=== PATIENT | female | born 1955 | race Caucasian/White ===

== ENCOUNTER 2016-09-16 09:54 | Emergency (ER) | payer MEDICARE, OTHER ==
[~2016-09-16] VITALS: Ht 167.6 cm; Wt 68.2 kg
[2016-09-16 10:14] VITALS: BP 201/122; PULSE 91; RESP 10; O2SAT 100
--- NOTE | 2016-09-16 10:27 | ED.REPORT ---
HPI-General Illness Date of Service Sep 16, 2016 ED Provider: Dario Junior Pt is a 60 year old female with a history of untreated HTN who presents to the ED wanting to go into detox for heroin and methamphetamine. She c/o associated leg swelling. She denies abdominal pain, SOB, cough, chest pain, and any other symptoms. The pt reports that she is at [facility] for [facility], and she is presenting to the ED to get a prescription for Suboxone to help with her detox. She last used heroin at 06:00 today. The pt normally takes 25 of HTCZ for her HTN, but she has not been refilling her medication for the past couple months. Nursing Notes Stated Complaint: DETOX HEROIN/METH Chief Complaint: General Complaint Nursing Notes Reviewed: Yes Allergies: Coded Allergies: No Known Allergies (Unverified , 09/16/16) Scheduled Hydrochlorothiazide (Hydrochlorothiazide) 25 Mg Tablet 25 MG PO DAILY General Time Seen by MD: 10:26 Chief Complaint Other (Detox) Hx Obtained From: Patient Arrived By: Walk-in Sudden in Onset?: No Onset Occurred: Onset unknown Symptom Duration: Since onset Severity: Current: No pain currently Severity: Maximum: No pain Recent Healthcare: No recent doctor visit, No recent hospitalization Similar Sx Previous: No Past Medical History Past Medical History Hypertension Past Surgical History Denies Smoking History Current Every Day Smoker Social History Drug Use: Meth, Other (Heroin) Ambulatory Status Independent Review of Systems + High blood pressure Full Review of Systems Constitutional: Denies: Fever Respiratory: Denies: Non-productive cough, Shortness of breath Cardiovascular: Denies: Chest pain Skin: Reports Swelling Neurologic: Reports: Headache Complete sys rev & neg: except as marked. Physical Exam Vital Signs Vital Signs Date Time Temp Pulse Resp B/P Pulse Ox O2 Delivery O2 Flow Rate FiO2 09/16/16 10:14 36.6 91 10 201/122 100 Room Air Initial VS: Reviewed Head / Eyes: Atraumatic, Normocephalic Neck: Supple, Full range of motion Respiratory: Breath sounds normal, Clear to auscultation, No respiratory distress Cardiovascular: Regular rate & rhythm, Heart sounds normal, Intact distal pulses Abdomen / GI: Soft, Non-tender Extremities: Vascular intact, Neuro intact Skin: Warm, Dry, No cyanosis Neurologic: Alert, Oriented, Nonfocal Psychiatric: Mood/affect normal, Behavior normal General/Constitutional: Awake, Alert, Cooperative Re-Eval/Medical Decision Source of Hx: Old records Time of Eval: 10:39 Re-Evaluation/Progress Note: Pt rechecked. Informed pt of plan for discharge. Pt understands and agrees with plan for discharge. F/U instructions and RTER warnings given. All questions addressed. Counseled Regarding: Diagnosis, Need for follow-up, When/why to return to ED Discharge & Departure Primary Impression: Uncontrolled hypertension Additional Impressions: Opiate addiction Substance use status: uncomplicated Qualified Code: F11.20 - Opioid dependence, uncomplicated Amphetamine addiction Disposition: Home Discharge Condition All VS Reviewed: Yes Condition: Stable Patient Instructions: Chronic Hypertension (ED) Additional Instructions: Resume taking hydrochlorothiazide daily 25 mg. If your blood pressure remains elevated next week, follow up at the clinic. [facility]one. Referrals: Yandel Kenney Attestation Portions of this note were transcribed by Tabitha Capps. I, Dr. Junior personally performed the history, physical exam and medical decision-making; I reviewed and confirmed the accuracy of the information in the transcribed note. Signed by: Audrey Seth, 09/16/16 and 10:50. copies to: Yandel Kenney Kirk H MD Sep 16, 2016 10:27 Tabitha Bowen Sep 16, 2016 10:34
[2016-09-16] MEDS ORDERED: HYDR25TA4 PO (10:39)
[2016-09-16 11:17] VITALS: BP 201/130; PULSE 88
== END 2016-09-16 11:08 | disposition home or self-care (01) ==
LOC: SED 09:54
DX: I10 Essential (primary) hypertension (principal); F11.20 Opioid dependence, uncomplicated; F15.20 Other stimulant dependence, uncomplicated; F17.200 Nicotine dependence, unspecified, uncomplicated